=== PATIENT | male | born 1975 | race Caucasian/White ===

== ENCOUNTER 2021-04-22 12:27 | Outpatient (CLI) | payer BC, SELFPAY ==
--- NOTE | 2021-04-22 16:58 | WPDPFTINT ---
PFT Procedure Performed PFT Procedure Performed Spirometry with Pre/Post Bronchodilator Plethysmography (Lung Vol) Diffusing Cap (DLCO) Flow Vol Loop PFT Interpretation This is a pulmonary function test with pre and post-bronchodilator spirometry, plethysmography and diffusing capacity. The test was performed and results interpreted in accordance with the 2019 and 2005 ATS/ERS Task Force guidelines respectively using the Global Lung Function Initiative-2012 reference equations. Patient demonstrated good effort and cooperation. Reproducibility criteria were met. The quality of the pre bronchodilator spirometry maneuver was Grade A and post bronchodilator spirometry maneuver was Grade A. Findings: Spirometry: There is decreased maximal expiratory airflow at all lung volumes with concave expiratory flow tracing. The pre bronchodilator FVC is 4.01 L, 78% predicted. The pre bronchodilator FEV1 is 2.69 L, 66% predicted. The FEV1: FVC ratio is 67%. The post bronchodilator FVC is 4.26 L, representing a 6% increase. The post bronchodilator FEV1 is 2.92 L, representing an 8% increase. Plethysmography: The total lung capacity is 5.97 L, 86% predicted. Functional residual capacity is 2.92 L, 83% predicted. The residual volume is 1.95 L, 100% predicted. Diffusion capacity: The absolute diffusion capacity is 22.6, 71% predicted. The diffusing capacity corrected for alveolar volume is 4.14, 89% predicted. Impression: There is a moderate obstructive abnormality without significant improvement after inhaling a single dose of albuterol. The lung volumes are normal. The absolute diffusing capacity is mildly decreased and normalizes when corrected for alveolar volume. There are no prior studies for comparison
== END 2021-04-22 12:28 | disposition home or self-care (01) ==
PROVIDERS: PCP Emergency Medicine; Visit Provider Nurse Practitioner
DX: J45.909 Unspecified asthma, uncomplicated (principal)
CPT/HCPCS: 94060; 94726; 94729

== ENCOUNTER 2021-05-18 15:14 | Outpatient (CLI) | payer BC, SELFPAY ==
--- NOTE | ~2021-05-18 | XR_ITS ---
XR chest 2V DATE: 05/18/2021 15:27 INDICATION: Dyspnea, cough TECHNIQUE: PA and lateral views COMPARISON: 10/26/2014 PA and lateral chest FINDINGS: Normal heart size. No hilar or mediastinal enlargement. No pulmonary infiltrate or consolid ation, pleural effusion or pulmonary vascular congestion or pneumothorax. IMPRESSION: No active cardiopulmonary disease Reviewed, dictated and finalized at location B.
== END 2021-05-18 15:15 | disposition home or self-care (01) ==
LOC: ANHIMG 15:16
PROVIDERS: PCP Emergency Medicine; Visit Provider Nurse Practitioner
DX: R06.00 Dyspnea, unspecified (principal)
CPT/HCPCS: 71046

== ENCOUNTER 2021-11-05 03:39 | Emergency (ER) | payer BC, SELFPAY ==
--- NOTE | ~2021-11-05 | XR_ITS ---
EXAMINATION: XR abdomen/kub 1V DATE: 11/05/2021 06:49 INDICATION: Right flank pain TECHNIQUE: A supine view of the abdomen on 2 radiographs was obtained. COMPARISON: CT dated 11/05/2021 FINDINGS: The previous noted 7-8 mm stones at the right renal pelvis and ureteropelvic junction are clearly vis ible on the plain radiographs near the tip of the right transverse process of L1. No other urolithias is. A few phleboliths in the pelvis. Moderate amount of gas and stool scattered throughout the colon. No dilated gas-filled bowel to suggest obstruction. Mild lumbar dextrocurvature. Mild bilateral hip osteoarthritis.. IMPRESSION: 1. Pair of 7-8 mm stones at the right renal pelvis and ureteropelvic junction. Reviewed, dictated and finalized at location A.
--- NOTE | ~2021-11-05 | CT_ITS ---
EXAMINATION: CT abdomen pelvis wo con DATE: 11/05/2021 04:00 INDICATION: Right flank pain TECHNIQUE: Computed tomography (CT) of the abdomen and pelvis was performed without intravenous contr ast. Automated exposure control and iterative reconstruction technique were employed. The dose-length product was 479.43 mGy-cm. COMPARISON: 03/14/2016 FINDINGS: Lung bases are clear. Heart size is normal. No pericardial or pleural effusion. Liver, gallbladder, s pleen, pancreas, bilateral adrenal glands and left kidney are normal. 8 x 6 mm stone in the right lyndsey al pelvis and 7 x 6 mm stone at the right ureteropelvic junction. There is mild right hydronephrosis and mild stranding about the proximal right ureter and right renal pelvis. No stones seen along the m ore distal ureters. Several phleboliths in the pelvis. Bladder is normal. Small fat-containing direct right inguinal hernia. Bowels including the appendix are normal. No free intraperitoneal gas or flui d. No pathologically enlarged abdominal or pelvic lymphadenopathy. Mild lumbar dextrocurvature. IMPRESSION: 1. Right nephrolithiasis including likely partially obstructing stone at the ureteropelvic junction w ith mild right hydronephrosis. There is also some adjacent inflammation presenting and would correlat e with urinalysis to exclude associated urinary tract infection. Reviewed, dictated and finalized at location A. IMPRESSION: 1. Right nephrolithiasis including likely partially obstructing stone at the ur eteropelvic junction with mild right hydronephrosis. There is also some adjacen t inflammation presenting and would correlate with urinalysis to exclude associ ated urinary tract infection.
[2021-11-05] MEDS: SODIUM CHLORIDE 0.9% IV 1,000 ML 999 ML IV CONT ×2 (03:45→04:56)
[2021-11-05] MEDS: MORPHINE SULFATE (*CRX) 4 MG/ML INJ IV PUSH (03:45)
[2021-11-05 03:47] VITALS: BP 136/99; PULSE 61; RESP 28; TEMP 36.3; O2SAT 100
[2021-11-05] MEDS: HYDROmorphone HCL INJ (*CRX) 1 MG/ML SYR IV PUSH (04:11)
[2021-11-05 04:41] LABS: Basophils Absolute Auto 0.1 K/mm3 (0.0-0.1); Basophils Percent Auto 0.4 % (0.2-1.2); Eosinophils Absolute Auto 0.3 K/mm3 (0-0.3); Eosinophils Percent Auto 2.2 % (0-4.4); Hematocrit 39.4 % (42.0-52.0); Hemoglobin 12.9 g/dL (14.0-18.0); Immature Granulocyte Absolute 0.02 K/mm3 (0.00-0.031); Immature Granulocyte Percent A 0.2 % (0-0.5); Lymphocytes Percent Auto 19.9 % (18.3-44.2); Mean Corpuscular HGB Conc 32.7 g/dl (32-36); Mean Corpuscular Hemoglobin 26.4 pg (26-34); Mean Corpuscular Volume 80.7 fl (80-100); Mean Platelet Volume 10.1 fl (7.4-10.4); Monocytes Percent Auto 7.5 % (2.6-8.5); Neutrophils Absolute Auto 9.1 K/mm3 (1.3-6.7); Neutrophils Percent Auto 69.8 % (45.5-73.1); Platelet Count Result 297 k/mm3 (150-375); Red Blood Count 4.88 M/mm3 (4.6-6.20); Red Cell Distribution Width 15.4 % (11.5-14.5)
--- NOTE | 2021-11-05 04:44 | ED.MALEGU ---
HPI - Male Genitourinary General Chief complaint: Urogenital-Male Stated complaint: right flank pain Time Seen by Provider: 11/05/21 03:42 Source: patient History of Present Illness HPI Narrative: Patient presents with right-sided flank pain reports his symptoms started suddenly started in his right back and radiates down to his groin. Pain is achy, constant, no clear aggravating or alleviating factors. Thinks it is a kidney stone as he reports a history of the same and thinks maybe required lithotripsy in the past. Related Data Allergies Allergy/AdvReac Type Severity Reaction Status Date / Time diphenhydramine Allergy Unknown Verified 11/05/21 03:50 [From Benadryl] Review of Systems Review of Systems: CONSTITUTIONAL: Denies fever, chills, or sweats. EYES: Denies visual changes, redness, or discharge. ENT: Denies rhinorrhea, congestion, sore throat, or otalgia. CARDIOVASCULAR: Denies chest pain, palpitations, or edema. RESPIRATORY: Denies cough or dyspnea. GASTROINTESTINAL: Denies nausea, vomiting, or diarrhea. GENITOURINARY: Denies dysuria or hematuria. SKIN: Denies rash or itching. MUSCULOSKELETAL: Denies back pain, joint pain, or myalgia. NEUROLOGIC: Denies headache, numbness, dizziness, or weakness. PSYCHIATRIC: Denies anxiety or depression. All systems reviewed & are unremarkable except as noted in HPI and below PMFSH Past Medical History Medical History Asthma Exam Narrative: GENERAL: Well-appearing, well-nourished, and in moderate distress due to pain HEAD: Normocephalic, atraumatic. EYES: PERRLA and EOMI. ENT: Nares clear, no rhinorrhea or epistaxis. Mucous membranes moist. NECK: Supple. No masses. No JVD ABDOMEN: Soft, nontender, nondistended EXTREMITIES: Normal range of motion. No edema. SKIN: Warm, dry, no rash. NEURO: No focal deficits. Alert and oriented x3. PSYCH: Normal mood and affect. Course Reevaluation(s) Reevaluation #1: Patient is more comfortable patient updated on results are pending CMP and UA Date: 11/05/21 Time: 05:01 Reevaluation #2: Patient is evaluated by urology in the ER patient will be scheduled for lithotripsy tomorrow patient is comfortable with discharge plan today urology requested a dose of antibiotics prior to discharge. Date: 11/05/21 Time: 07:08 Consultations Consultation #1: Case discussed with Dr. Baker who will evaluate in the ER. Date: 11/05/21 Time: 06:41 Vital Signs Vital signs: Vital Signs Temperature 36.3 C L 11/05/21 03:47 Pulse Rate 61 11/05/21 03:47 Respiratory Rate 28 H 11/05/21 03:47 Blood Pressure 136/99 H 11/05/21 03:47 Pulse Oximetry 100 11/05/21 03:47 Temperature 36.3 C L 11/05/21 03:47 Pulse Rate 61 11/05/21 03:47 Respiratory Rate 28 H 11/05/21 03:47 Blood Pressure 136/99 H 11/05/21 03:47 Pulse Oximetry 100 11/05/21 03:47 MDM - Male Genitourinary MDM Narrative Medical decision making narrative: H&P as above, vss, patient presented mild distress due to pain, labs reassuring, img with large right proximal stone, additional labs/img considered, symptomatic relief available as needed, on reevaluation pt continues to looks clinically well. Suspect proximal stone causing pain, dns infected stone, acute kidney injury, sepsis. Plan is for lithotripsy tomorrow. Urology evaluated the patient in the ER and will contact the patient later today. Lab Data Result diagrams: 11/05/21 04:17 11/05/21 04:17 Labs: Lab Results 11/05/21 11/05/21 11/05/21 Range/Units 04:17 04:17 05:43 WBC 13.0 H (4.5-10.0) K/mm3 RBC 4.88 (4.6-6.20) M/mm3 Hgb 12.9 L (14.0-18.0) g/dL Hct 39.4 L (42.0-52.0) % MCV 80.7 (80-100) fl MCH 26.4 (26-34) pg MCHC 32.7 (32-36) g/dl RDW 15.4 H (11.5-14.5) % Plt Count 297 (150-375) k/mm3 MPV 10.1 (7.4-10.4) fl Immature Gran % (Auto) 0.2 (0-0.5) % Neut % (Auto) 69.8
[2021-11-05 05:00] LABS: Alanine Aminotransferase 18 U/L (4-50); Albumin Level 4.5 g/dL (3.5-5.1); Alkaline Phosphatase 67 U/L (38-126); Anion Gap 11 mmol/L (8-16); Aspartate Amino Transferase 28 U/L (17-59); Bilirubin,Total 0.6 mg/dL (0.2-1.3); Blood Urea Nitrogen 13 mg/dL (9-20); Calcium 9.2 mg/dL (8.4-10.2); Carbon Dioxide 19 mmol/L (22-30); Chloride 105 mmol/L (98-107); Estimated CRCL calculation 98 ml/min; Estimated Glomerular Filt Rate > 60; Glucose 109 mg/dL (65-110); Potassium 3.9 mmol/L (3.4-5.0); Sodium 135 mmol/L (137-145)
[2021-11-05 05:54] LABS: Add Urine Microscopic? YES; Appearance Urine Cloudy (Clear); Bacteria Urine Trace /hpf; Bilirubin Urine Negative (Negative); Blood Urine 3+ (Negative); Calcium Oxalate Crystals Urine Present /hpf; Color Urine Yellow (Yellow); Glucose Urine UA Negative (Negative); Ketones Urine Negative (Negative); Leukocyte Esterase Ur Trace LEU/UL (Negative); Mucus Urine Heavy /lpf; Nitrate Urine Negative (Negative); Protein Urine 2+ mg/dL (Negative); RBC Urine >75 /hpf (0-2); Specific Grav Ur 1.023 (1.001-1.035); Urobilinogen Urine Negative mg/dL (<2.0)
--- NOTE | 2021-11-05 07:12 | WPDURCON ---
Assessment and Plan Assessment and plan (1) Right renal stone: Code(s): N20.0 - Calculus of kidney Status: Acute Assessment and Plan: Right ESWL Urology Consult Note HPI Date Seen: 11/05/21 Primary Care Provider: Chidi Lopes MD Consult Narrative Narrative: Stephen Plaza is a 45 year old male who has spontaneously passed 1 ureteral calculus in the remote past. He presents to the ER with acute right flank pain, nausea and vomiting. He denies fevers chills irritable voiding or gross hematuria. Imaging demonstrates 2 5-6 mm calculi in his right renal pelvis, 1 of which appears to be obstructing the right ureteropelvic junction. His pain is well controlled with analgesics. After discussion of options he has elected to be discharged with arrangements for outpatient ESWL. He is aware the risk of that procedure including, but not limited to, persistent stone fragments which could obstructing cause pain, need for 2nd procedure, injury to the kidney with perinephric hematoma. Review of Systems Cardiovascular: Cardiovascular: Denies chest pain, Denies lightheadedness, Denies palpitations and Denies dyspnea Respiratory: Respiratory: Denies dyspnea Gastrointestinal: Gastrointestinal: Denies diarrhea, Denies nausea and Denies vomiting Genitourinary: Genitourinary: Denies hematuria and Denies dysuria Endocrine: Endocrine: Denies palpitations [facility] Past Medical History Medical History Asthma Meds Home Medications and Allergies Allergies Allergy/AdvReac Type Severity Reaction Status Date / Time diphenhydramine Allergy Unknown Verified 11/05/21 03:50 [From Benadryl] Vital Signs Vital Signs - 24 hr 11/05/21 03:47 Temperature 97.3 F L Pulse Rate 61 Respiratory Rate 28 H Blood Pressure 136/99 H Pulse Oximetry 100 Exam Const: General: no acute distress Resp: Effort & Inspection: normal respiratory effort GI: Inspection: non-distended GI Palp: No abdominal tenderness and No Guarding due to palpation present (GI) Auscultation: normal bowel sounds Results Labs CBC & Chem 7: 11/05/21 04:17 11/05/21 04:17 Labs: Short CBC 11/05/21 Range/Units 04:17 WBC 13.0 H (4.5-10.0) K/mm3 Hgb 12.9 L (14.0-18.0) g/dL Hct 39.4 L (42.0-52.0) % Plt Count 297 (150-375) k/mm3 BMP 11/05/21 04:17 Sodium 135 L Potassium 3.9 Chloride 105 Carbon Dioxide 19 L BUN 13 Creatinine 0.90 Glucose 109 Calcium 9.2 Liver Function 11/05/21 Range/Units 04:17 Total Bilirubin 0.6 (0.2-1.3) mg/dL AST 28 (17-59) U/L ALT 18 (4-50) U/L Alkaline Phosphatase 67 (38-126) U/L Albumin 4.5 (3.5-5.1) g/dL Urine 11/05/21 Range/Units 05:43 Urine Color Yellow (Yellow) Urine Appearance Cloudy H (Clear) Urine pH 5.0 (5.0-9.0) Ur Specific [place] 1.023 (1.001-1.035) Urine Protein 2+ H (Negative) mg/dL Urine Glucose (UA) Negative (Negative) mg/dL
[2021-11-05 07:47] VITALS: BP 124/72; PULSE 75; RESP 20; O2SAT 98
== END 2021-11-05 07:49 | disposition home or self-care (01) ==
PROVIDERS: Emergency Provider Emergency Medicine; PCP Emergency Medicine
DX: N13.2 Hydronephrosis with renal and ureteral calculous obstruction (principal); J45.909 Unspecified asthma, uncomplicated
CPT/HCPCS: 36415; 74018; 74176; 80053; 81001; 85025; 87086; 87088; 96361; 96365; 96375; 99284; J0696; J1170; J2270; J7030

== ENCOUNTER 2021-11-06 00:34 | Day surgery (SDC) | payer BC, SELFPAY ==
[2021-11-05 08:48] VITALS: BMI 23.7
--- NOTE | 2021-11-05 08:53 | PC.NURSE ---
Report to the Outpatient Waiting Room, entrance under the green pavilion located off [facility], at time 1130 on date 11/06/21. OR Time: 1330. - You and your visitor will be asked a series of questions to screen for COVID 19 for your protection. - A mask is required within the hospital. One visitor will be allowed to accompany the patient into the hospital. Patients visitor will be instructed to remain with patient at all times or leave the building. We will allow the visitor to come back to the postoperative area when patient is ready. Preoperative COVID Testing Requirements: No COVID Test needed if: (proof is required; if not received patient will have Rapid Test prior to entry) - Patient has received COVID Vaccine at least 14 days prior to procedure date or - Patient has positive COVID test result within last 90 days of surgery date. COVID Test needed if above criteria is not met Patients may have clear liquids (water, carbonated beverages, clear teas, apple juice) until 3 hours prior to surgery with a maximum of 20 ounces. - No food from midnight until time of surgery Take the following medications with a SIP of water the morning of surgery: INHALER, PAIN PILL (IF NEEDED) Medications to discontinue per physician: N/A Date to take last dose: N/A Please no make-up, nail faroese, hairspray, perfume, deodorant, or body powder the day of surgery. No jewelry (including any body piercings) or valuables the day of surgery, leave them at home. Please take a shower or bath the night before, or the morning of, surgery with an antibacterial soap. Wear comfortable, loose fitting clothing. - Jewelry must be removed prior to entering the operating room. Rings and piercings that are not removed may be cut off. - The hospital will not accept responsibility for valuables. - Please leave all valuables, including medications, at home the day of surgery. If you are going home after surgery, a licensed dray driver must drive you home. - NO public transportation without another adult. - We recommend that an adult stay with you for 24 hours following discharge. - We also recommend that you do not drive, make important decision, drink alcoholic beverages, or take any drugs that were not prescribed by your health care provider for at least 24 hours after your discharge time. Follow any additional instructions given to you from your surgeon. Telephone instructions given to LORENE HADDAD and asked if any additional questions and then verbalized understanding. Patient advised to call surgeon office or pre surgery nurse liaison [phone] if any additional questions.
[2021-11-06] VITALS (9 sets, daily range): BP systolic 120–145; BP diastolic 74–99; PULSE 57–75; RESP 12–20; TEMP 36.2–36.9; O2SAT 94–99
--- NOTE | ~2021-11-06 | XR_ITS ---
EXAMINATION: XR abdomen/kub 1V DATE: 11/06/2021 11:36 INDICATION: Kidney stone. TECHNIQUE: A supine view of the abdomen was obtained. COMPARISON: CT abdomen and pelvis 11/05/2021 radiographs 11/05/2021 FINDINGS: There are phleboliths in the pelvis. There are no dilated loops of bowel. There are 2 stone s at right ureteropelvic junction measuring up to 6 mm. IMPRESSION: 1. 2 stones at right ureteropelvic junction measuring up to 6 mm. Reviewed, dictated and finalized at location A.
--- NOTE | 2021-11-06 06:50 | WPDHPUPDATE1 ---
History and Physical Update Update Date/Time: 11/06/21 06:50 History and Physical has been reviewed, including an updated exam of the patient. There are NO changes in the patient's condition. Risks, benefits, and alternatives have been discussed and questions answered. Patient agrees to proceed with procedure.
[2021-11-06] MEDS: LACTATED RINGERS 1,000 ML 30 ML IV CONT ×2 (11:50→14:15)
[2021-11-06 12:12] LABS: Partial Thromboplastin Time 26.6 SECONDS (22.3-36.8); Prothrombin Time 12.7 Seconds (11.1-14.7)
--- NOTE | 2021-11-06 12:38 | WPDANESEPPF ---
Anes - Initial Pre Proc Eval Procedure: Operation Date: 11/06/21 13:30 Proposed Procedures p Right Extracorporeal Shock Wave Lithotripsy - Saad Baker MD Date/Time: 11/06/21 12:38 Surgeon: Saad Baker MD Pre Op Diagnosis: right kidney stone Patient Data Age: 45 Gender: M Height: 1.83 m Weight: 85.6 kg Last Vital Signs Temp 36.9 C 11/06/21 12:08 Pulse 57 L 11/06/21 12:08 Resp 20 11/06/21 12:08 BP 120/74 11/06/21 12:08 Pulse Ox 99 11/06/21 12:08 Allergies Allergy/AdvReac Type Severity Reaction Status Date / Time No Known Allergies Allergy Verified 11/06/21 11:54 Home Medications Medication Instructions Recorded Confirmed Type fluticasone propion-salmeterol 2 inh INHALATION BID 11/05/21 11/06/21 History [Wixela Inhub] oxycodone-acetaminophen 1 tablet PO Q4H PRN #10 tablet 11/05/21 11/06/21 Rx Laboratory Tests 11/06/21 11:52 PT 12.7 Seconds Seconds (11.1-14.7) INR 1.0 APTT 26.6 SECONDS SECONDS (22.3-36.8) Patient hx anesthesia problems: none Family hx anesthesia problems: none Results Review: All pre-operative results and documents have been reviewed as part of the pre-operative evaluation. [facility] Past Medical History Medical History Asthma Social History Social History Smoking status: Never smoker Alcohol intake: never Substance use: current Substance use type: marijuana Living arrangements: alone Spiritual care concerns: No Anes - Eval Final PreProcedure Day of Procedure 11/06/21 12:38 Patient weight: overweight Heart: regular rate and rhythm Lungs: clear to auscultation Airway: Mallampati scale class II Neurological: alert and oriented Last oral intake: >/= 8 hours ASA classification: II Emergent: no Anesthetic plan: proceed Anesthesia type and monitoring: general LMA and standard monitoring Results Review: All pre-operative results and documents have been reviewed as part of the pre-operative evaluation. Informed Consent: The patient's anesthetic plan and its attendant risks and benefits were discussed with the patient/family/POA. Questions were solicited and answers provided to the satisfaction of the patient/family/POA.
[2021-11-06] MEDS: ceFAZolin 2 GM/D5W 50 ML 2 GM/50 ML BAG IVPB (12:46)
--- NOTE | 2021-11-06 12:58 | W.PM.PROC2 ---
Procedure Note - Detailed Date of Procedure 11/06/21 Pre-op Diagnosis Right kidney stones Post-op Diagnosis Same Procedure Performed Right ESWL Surgeon Saad Baker MD Anesthesia General Description of Procedure The patient was brought to the operative suite where he was placed in the supine position on the Dornier lithotripsy table. The focal point of the lithotripter was placed at a []2 continguoius calculi in right renal pelvis - each 4-5mm. A total of 2500 shocks were delivered at a power setting of 4. There appeared to be good fragmentation of the stone. The patient tolerated the procedure well and was taken to the recovery room in good condition. Estimated Blood Loss 0 Drains No Packing No Pathology None sent Complications No immediate complications Condition Stable Disposition PACU
[2021-11-06] MEDS: fentaNYL CITRATE INJ (*CRX) 100 MCG/2 ML VIAL 25 MCG IV PUSH ×5 (13:55→15:03)
[2021-11-06] MEDS: oxyCODONE HCL (*CRX) 5 MG TAB IR PO (14:52)
== END 2021-11-06 15:36 | disposition home or self-care (01) ==
PROVIDERS: PCP Emergency Medicine; Visit Provider Urology
PROC: (CPT 50590; principal; 2021-11-06 13:30)
DX: N20.0 Calculus of kidney (principal); J45.909 Unspecified asthma, uncomplicated; Z79.51 Long term (current) use of inhaled steroids; F12.90 Cannabis use, unspecified, uncomplicated
CPT/HCPCS: 50590; 36415; 74018; 85610; 85730; A9270; J0690; J2250; J2405; J2704; J3010; J7120

== ENCOUNTER 2021-11-08 04:42 | Observation (INO) | payer BC, SELFPAY ==
--- NOTE | ~2021-11-08 | CT_ITS ---
EXAMINATION: CT abdomen pelvis w con DATE: 11/08/2021 06:07 INDICATION: Worsening right flank pain TECHNIQUE: Computed tomography (CT) of the abdomen and pelvis was performed without intravenous contr ast. The dose-length product was 578.96 mGy-cm. Automated exposure control and iterative reconstructi on technique were employed. COMPARISON: CT dated 11/05/2021. FINDINGS: There is dependent atelectasis. Heart size normal. No significant pleural or pericardial ef fusion. There are small subcentimeter hypodensities of the left kidney, most likely benign cysts. Fat ty infiltration of the liver. There is moderate right perinephric edema. Multiple right calyceal ston es. There is moderate right hydroureteronephrosis secondary to a column of stones in the right mid ur eter at the level of L3 inferiorly. There is periureteral edema with mild urothelial enhancement. Can not exclude ascending urinary tract infection. There are layering stones in the bladder. Bladder is d ecompressed. No left hydronephrosis. The spleen, pancreas, adrenal glands are unremarkable. Gallbladd er is present. Small fat-containing umbilical hernia. Nonobstructive bowel gas pattern. IMPRESSION: 1. There is a column of small stones in the right mid ureter at the L3 level with moderate right hydr oureteronephrosis as well as periureteral/perinephric edema and urothelial enhancement. Cannot exclud e ascending urinary tract infection. 2: Nonobstructing right nephrolithiasis. Bladder stones. Reviewed, dictated and finalized at location A. IMPRESSION: 1. There is a column of small stones in the right mid ureter at the L3 level wi th moderate right hydroureteronephrosis as well as periureteral/perinephric sarthak ma and urothelial enhancement. Cannot exclude ascending urinary tract infection . 2: Nonobstructing right nephrolithiasis. Bladder stones.
[2021-11-08 04:47] VITALS: BP 141/81; PULSE 62; RESP 24; TEMP 36.7; O2SAT 97
--- NOTE | 2021-11-08 05:13 | ED.BACK ---
HPI - Back Pain/Injury General Chief Complaint: Back Pain/Injury Stated Complaint: kidney stone? Time Seen by Provider: 11/08/21 04:59 Source: patient, RN notes reviewed and old records reviewed History of Present Illness HPI Narrative: 45-year-old male with history of recent lithotripsy on 11/06 presents to the emergency department for evaluation of worsening right flank pain. Patient states the procedure was done on Tuesday. Patient states he was still having some pain through Tuesday. Patient states that he did take some of his [place] pain medication on Tuesday night and woke up with some gastric reflux and was still having some right flank pain. Patient took some additional [place] and woke up later with additional acid reflux and was still having right flank pain. Patient's primary complaint at this time is a burning right flank pain. Patient denies any other abdominal pain. Patient does have associated nausea. Related Data Home Medications Medication Instructions Recorded Confirmed fluticasone propion-salmeterol 2 inh INHALATION BID 11/05/21 11/06/21 [Wixela Inhub] albuterol sulfate INHALATION 11/08/21 Allergies Allergy/AdvReac Type Severity Reaction Status Date / Time No Known Allergies Allergy Verified 11/06/21 11:54 Review of Systems Review of Systems: CONSTITUTIONAL: Denies fever, chills, or sweats. EYES: Denies visual changes, redness, or discharge. ENT: Denies rhinorrhea, congestion, sore throat, or otalgia. CARDIOVASCULAR: Denies chest pain, palpitations, or edema. RESPIRATORY: Denies cough or dyspnea. GASTROINTESTINAL: Right flank pain with associated nausea and vomiting GENITOURINARY: Denies dysuria or hematuria. SKIN: Denies rash or itching. MUSCULOSKELETAL: Denies back pain, joint pain, or myalgia. NEUROLOGIC: Denies headache, numbness, or weakness. [facility] Past Medical History Medical History Asthma Social History Social History Smoking status: Never smoker Alcohol intake: never Substance use: current Substance use type: marijuana Spiritual care concerns: No Exam Narrative: APPEARANCE: Well appearing, no pain, no distress, well-nourished. HEAD: normocephalic, atraumatic. EYES: PERRLA/EOMI, conjunctivae clear. NOSE: Normal no drainage NECK: Supple. No adenopathy, no masses. RESPIRATORY: Airway patent, respirations nonlabored. Clear to auscultation bilaterally, no rales, rhonchi, wheezing. CARDIOVASCULAR: Regular rate and rhythm without murmurs rubs or gallops. ABDOMINAL: Right flank tenderness to palpation. Some midepigastric tenderness to palpation as well. soft with no rebound no guarding. NBS MUSCULOSKELETAL: Moves all extremities. Strength/ROM intact, No edema, No calf tenderness. NEURO: Alert. Cranial nerves II through XII intact. Good gait. Good coordination SKIN: Warm, dry. Normal Color Course Course Emergency Course: Patient does have an elevated lipase. Patient denies any prior history of pancreatitis. Patient denies any alcohol consumption. Patient does admit to smoking marijuana. Urology was consulted. Case was discussed with the hospitalist and patient will be admitted to [facility] without telemetry. Patient was stable at time of admission. Consultations Consultation #1: Case was discussed with Dr Ribeiro on-call for urology. Patient will be admitted to the hospital service and urology will see the patient as consult. Patient was made n.p.o. Vital Signs Vital signs: Vital Signs Temperature 98.0 F 11/08/21 04:47 Pulse Rate 62 11/08/21 04:47 Respiratory Rate 24 H 11/08/21 04:47 Blood Pressure 141/81 H 11/08/21 04:47 Pulse Oximetry 97 11/08/21 04:47 Temperature 98.0 F 11/08/21 04:47 Pulse Rate 63 11/08/21 06:19 Respiratory Rate 19 11/08/21 06:19 Blood Pressure 143/85 H 11/08/21 06:19 Pulse Oximetry 96 11/08/21 0
[2021-11-08 05:16] LABS: Basophils Percent Auto 0.3 % (0.2-1.2); Eosinophils Absolute Auto 0.2 K/mm3 (0-0.3); Hematocrit 37.8 % (42.0-52.0); Hemoglobin 11.8 g/dL (14.0-18.0); Immature Granulocyte Absolute 0.01 K/mm3 (0.00-0.031); Immature Granulocyte Percent A 0.1 % (0-0.5); Lymphocytes Absolute Auto 1.52 K/mm3 (0.9-3.2); Lymphocytes Percent Auto 16.1 % (18.3-44.2); Mean Corpuscular HGB Conc 31.2 g/dl (32-36); Mean Corpuscular Hemoglobin 26.2 pg (26-34); Mean Corpuscular Volume 83.8 fl (80-100); Mean Platelet Volume 9.7 fl (7.4-10.4); Monocytes Percent Auto 10.6 % (2.6-8.5); Neutrophils Absolute Auto 6.7 K/mm3 (1.3-6.7); Neutrophils Percent Auto 70.9 % (45.5-73.1); Platelet Count Result 227 k/mm3 (150-375); Red Blood Count 4.51 M/mm3 (4.6-6.20); Red Cell Distribution Width 15.7 % (11.5-14.5); White Blood Count 9.5 K/mm3 (4.5-10.0)
[2021-11-08] MEDS: ONDANSETRON INJ 4 MG/2 ML VIAL IV PUSH (05:17)
[2021-11-08] MEDS: HYDROmorphone HCL INJ (*CRX) 1 MG/ML SYR IV PUSH ×2 (05:18→06:17)
[2021-11-08 05:23] LABS: Add Urine Microscopic? YES; Appearance Urine Clear (Clear); Bacteria Urine Trace /hpf; Bilirubin Urine Negative (Negative); Blood Urine 3+ (Negative); Color Urine Straw (Yellow); Glucose Urine UA Negative (Negative); Ketones Urine Negative (Negative); Leukocyte Esterase Ur Negative LEU/UL (Negative); Mucus Urine Rare /lpf; Nitrate Urine Negative (Negative); Protein Urine Negative (Negative); RBC Urine 0-2 /hpf (0-2); Specific Grav Ur 1.005 (1.001-1.035); Urobilinogen Urine Negative mg/dL (<2.0); WBC Urine 0-3 /hpf
[2021-11-08 05:28] LABS: Alanine Aminotransferase 18 U/L (4-50); Albumin Level 4.2 g/dL (3.5-5.1); Alkaline Phosphatase 59 U/L (38-126); Anion Gap 7 mmol/L (8-16); Aspartate Amino Transferase 28 U/L (17-59); Bilirubin,Total 0.8 mg/dL (0.2-1.3); Blood Urea Nitrogen 8 mg/dL (9-20); Calcium 8.9 mg/dL (8.4-10.2); Carbon Dioxide 25 mmol/L (22-30); Chloride 104 mmol/L (98-107); Estimated CRCL calculation 75 ml/min; Estimated Glomerular Filt Rate > 60; Glucose 143 mg/dL (65-110); Lipase 870 U/L (23-300); Potassium 3.8 mmol/L (3.4-5.0); Sodium 136 mmol/L (137-145)
--- NOTE | 2021-11-08 05:55 | PC.NURSE ---
Pt to CT scan via stretcher at this time.
[2021-11-08 06:19] VITALS: BP 143/85; PULSE 63; RESP 19; O2SAT 96
[2021-11-08 06:39] LABS: Ethanol < 10 mg/dL (<10)
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
[2021-11-08 08:39] VITALS: BP 124/78; PULSE 69; RESP 16; TEMP 36.6; O2SAT 98
[2021-11-08 08:50] VITALS: BMI 25.8
[2021-11-08 08:57] VITALS: O2SAT 98
--- NOTE | 2021-11-08 09:11 | ADMGEN ---
This patient, Stephen Plaza, was admitted to 3 Med Surg Room 302-01 at 0845. Patient/family oriented to hospital policies and general routines including ID bracelet, bed and alarms, visiting hours, pain management, procedures, bathroom and other care routines, personal items, smoking policy, room service/diet, and visiting hours. Information on how to activate the Rapid Response Team has been discussed. Patient/Family are encouraged to report perceived risks to care and to ask questions if they do not understand what they are told or what they should do.
[2021-11-08 09:15] VITALS: BP 128/71; PULSE 54; RESP 16; TEMP 36.8; O2SAT 96
[2021-11-08] MEDS: SODIUM CHLORIDE 0.9% IV 1,000 ML 150 ML IV CONT (09:27)
[2021-11-08] MEDS: HYDROmorphone HCL INJ (*CRX) 1 MG/ML SYR 0.5 MG IV PUSH (09:33)
--- NOTE | 2021-11-08 10:31 | WPDURCON ---
Assessment and Plan Assessment and plan (1) Right renal stone: Code(s): N20.0 - Calculus of kidney Status: Acute Additional Plan 45M with ureteral fragments after ESWL two days ago. - We had a long discussion about his options which are continued MET or URS +/- LL with stent. I alee pictures on his white board to illustrate. Describe URS in detail. Discussed stents which can be quite irritating to some people. He wants to continue to try and pass the fragments which is not unreasonable. - He should be on tamsulosin 0.4 mg daily for about 14 days. Ibuprofen for pain control, narcotics as necessary. - Will call the office early this week if he is still struggling and we can probably arrange an outpatient URS if necessary. - Mother agrees with plan. Urology Consult Note HPI Date Seen: 11/08/21 Requesting Physician: Ned Estevez DO Primary Care Provider: Chidi Lopes MD Consult Narrative Narrative: Stephen Plaza is a 45 year old male s/p ESWL two days ago with Dr Baker for two large right renal pelvis stones. He has passed fragments. He came to ED this morning due to right flank pain. Labs fine, UA not infected, vitals fine. CT shows a colum in the mid right ureter of about 1.5 cm worth of 2 mm fragments with mild to moderate hydro. Pain currently well controlled. He was not on tamsulosin as far as he is aware, though has had it in the past. Review of Systems Review of Systems: All systems reviewed & are unremarkable except as noted in HPI and below PMFSH Past Medical History Medical History Asthma Family History Family History Mother Hyperlipidemia Grandparent Hyperlipidemia Social History Social History Smoking status: Never smoker Alcohol intake: never Substance use: current Substance use type: marijuana Last use: 11/07/2021 Spiritual care concerns: No Meds Home Medications and Allergies Home Medications Medication Instructions Recorded Confirmed Type fluticasone propion-salmeterol 2 inh INHALATION BID 11/05/21 11/06/21 History [Wixela Inhub] oxycodone-acetaminophen 1 tablet PO Q4H PRN #10 tablet 11/05/21 11/06/21 Rx cephalexin 500 mg PO Q8H #9 cap 11/06/21 Rx hydrocodone-acetaminophen 1 - 2 tablet PO Q6H PRN #20 tablet 11/06/21 Rx albuterol sulfate INHALATION 11/08/21 History Allergies Allergy/AdvReac Type Severity Reaction Status Date / Time No Known Allergies Allergy Verified 11/06/21 11:54 Vital Signs Vital Signs - 24 hr 11/08/21 04:47 11/08/21 06:19 11/08/21 08:39 Temperature 36.7 C 36.6 C Pulse Rate 62 63 69 Respiratory Rate 24 H 19 16 Blood Pressure 141/81 H 143/85 H 124/78 Pulse Oximetry 97 96 98 11/08/21 08:57 Temperature Pulse Rate Respiratory Rate Blood Pressure Pulse Oximetry 98 Exam Const: General: cooperative, comfortable and no acute distress Eyes: General: appearance normal, both eyes and all related structures Resp: Effort & Inspection: normal respiratory effort Neuro: General: patient oriented x3 Results Labs CBC & Chem 7: 11/08/21 05:08 11/08/21 05:08 Labs: Short CBC 11/08/21 Range/Units 05:08 WBC 9.5 (4.5-10.0) K/mm3 Hgb 11.8 L (14.0-18.0) g/dL Hct 37.8 L (42.0-52.0) % Plt Count 227 (150-375) k/mm3 BMP 11/08/21 05:08 Sodium 136 L Potassium 3.8 Chloride 104 Carbon Dioxide 25 BUN 8 L D Creatinine 1.20 Glucose 143 H Calcium 8.9 Liver Function 11/08/21 Range/Units 05:08 Total Bilirubin 0.8 (0.2-1.3) mg/dL AST 28 (17-59) U/L ALT 18 (4-50) U/L Alkaline Phosphatase 59 (38-126) U/L Albumin 4.2 (3.5-5.1) g/dL Urine 11/08/21 Range/Units 05:08 Urine Color Straw (Yellow) Urine Appearance Clear (Clear) Urine pH 6.0 (
[2021-11-08] MEDS: TAMSULOSIN HCL 0.4 MG CAPSULE PO (11:56)
--- NOTE | 2021-11-08 14:47 | PM.DS ---
DS: Admitting Diagnosis Discharge Date 11/08/21 Admitting Diagnosis Hydroureteronephrosis kidney stones right-sided DS: Discharge Diagnosis Discharge Diagnosis (1) Right renal stone: Code(s): N20.0 - Calculus of kidney Status: Acute (2) Calculi, ureter: Code(s): N20.1 - Calculus of ureter Status: Acute (3) Asthma: Code(s): J45.909 - Unspecified asthma, uncomplicated Status: Acute DS: Summary Hospital Course Reason for hospitalization: Right-sided kidney stones hydroureter and pain Hospital Course: Mr. Plaza is a 45-year-old male past medical history of asthma and kidney stones who presents to ED with complaints of right back pain and abdominal pain. Patient underwent right ESWL by Dr. Baker on 11/06/2021 for right kidney stones. The procedure went well. He now returns with new pain. In the ED: CT abdomen pelvis was consistent with column of small stones in the right mid ureter L3 level with moderate right hydroureteronephrosis and perinephric edema. Vitals and lab work within normal limits. Urology was consulted and because of the small size of the kidneys stones they are okay with no stent placement, continue Flomax, ibuprofen pain control, keep outpatient follow-up. He was started on Flomax and started to pass kidney stones. If patient develops significant abdominal pain then ureter stent may be needed, however we are deferring for now. Patient to follow-up with Dr. Baker with his regular scheduled follow-up outpatient appointment. Rx for Flomax and ibuprofen given. At time of discharge patient's vitals are stable, labs stable, patient still for discharge home. He understands and agrees with plan. Status at Discharge Cognitive/behavioral status at discharge: At baseline Functional status at discharge: independent ambulation Overall status at discharge: patient is back to baseline Time Spent with Patient Time attestation: Total time spent providing and/or coordinating discharge services: 35 Time spent: Greater than 30 minutes Exam Narrative: - GENERAL: Pleasant male in no acute distress. Well nourished. - EYES: EOMI. Anicteric. - HENT: Moist mucous membranes. - LUNGS: Clear to auscultation bilaterally, no wheezing, rhonchi, or rales. - CARDIOVASCULAR: Regular rate and rhythm. No murmur. No JVD. - ABDOMEN: Soft, non-tender and non-distended. No palpable masses. Right CVA tenderness, mild - EXTREMITIES: No edema. Peripheral pulses 2+. Non-tender. - NEUROLOGIC: No focal neurological deficits. CN II-XII grossly intact. - PSYCHIATRIC: Awake, Alert and oriented x 3. Appropriate mood and affect. - SKIN: No rashes or lesions. Warm. - LYMPH: No cervical lymphadenopathy. DS: Data Data Completed and Pending Labs on day of discharge: Labs from last 24 hours 11/08/21 11/08/21 11/08/21 06:13 05:08 05:08 WBC 9.5 RBC 4.51 L Hgb 11.8 L Hct 37.8 L MCV 83.8 MCH 26.2 MCHC 31.2 L RDW 15.7 H Plt Count 227 MPV 9.7 Immature Gran % (Auto) 0.1 Neut % (Auto) 70.9 Lymph % (Auto) 16.1 L [place] % (Auto) 10.6 H Eos % (Auto) 2.0 Baso % (Auto) 0.3 Lymph # (Auto) 1.52 [place] # (Auto) 1.0 H Eos # (Auto) 0.2 Baso # (Auto) 0.0 Abs Immat Gran (auto) 0.01 Absolute Neuts (auto) 6.7 Absolute Nucleated RBC 0.0 Nucleated RBC % 0.0 Sodium 136 L Potassium 3.8 Chloride 104 Carbon Dioxide 25 Anion Gap 7 L BUN 8 L D Creatinine 1.20 Estim Creat Clear Calc 75 Estimated GFR > 60 Glucose 143 H Calcium 8.9 Total Bilirubin 0.8 AST 28 ALT 18 Alkaline Phosphatase 59 Total Protein 7.0 Albumin 4.2 Lipase 870 H Urine Color Urine Appearance Urine pH Ur Specific [place] Urine Protein Urine Glucose (UA) Urine Ketones Ur Blood (Man) Urine Nitrate Urine Bilirubin Urine Urobilinogen Leukocyte Esterase Rfl Urine RBC Urine WBC Urine Bacteria Urine
== END 2021-11-08 15:05 | disposition home or self-care (01) ==
LOC: ANHED 06:54 → ANH3MEDSUR 08:15
PROVIDERS: Admitting Provider Student in an Organized Health Care Education/Training Program; Emergency Provider Emergency Medicine; PCP Emergency Medicine; Visit Provider Student in an Organized Health Care Education/Training Program
DX: N13.2 Hydronephrosis with renal and ureteral calculous obstruction (principal); J45.909 Unspecified asthma, uncomplicated
CPT/HCPCS: 36415; 74177; 80053; 80307; 81001; 83690; 85025; 96374; 96375; 96376; 99285; A9270; G0378; G0379; J1170; J2405; J7030; Q9967

== ENCOUNTER 2021-11-09 17:38 | Inpatient (IN) | payer BC, SELFPAY ==
[2021-11-09] VITALS (7 sets, daily range): BP systolic 111–130; BP diastolic 57–98; PULSE 62–86; RESP 16–18; TEMP 36.9–37.6; O2SAT 96–100; BMI 25.9
--- NOTE | ~2021-11-09 | XR_ITS ---
EXAMINATION: XR retrograde pyelo w/stent RT DATE: 11/10/2021 13:49 INDICATION: Right internal ureteral stent placement TECHNIQUE: Fluoroscopic images from a right internal ureteral stent placement are submitted for ros am pinedo 125 seconds of fluoroscopy time. 5 fluoroscopic images. FINDINGS: There is a right double-J internal ureteral stent projecting in expected position, with proximal [place] loop at the level of the renal pelvis and distal loop in the pelvis within the bladder lumen. IMPRESSION: 1. Right internal ureteral stent placement. Please refer to real-time procedural findings for enzo snyder. Reviewed, dictated and finalized at location A. IMPRESSION: 1. Right internal ureteral stent placement. Please refer to real-time procedu ral findings for details.
--- NOTE | ~2021-11-09 | CT_ITS ---
EXAMINATION: CT abdomen pelvis wo con EXAM DATE: 11/09/2021 20:28 INDICATION: Flank pain, status post lithotripsy last Tuesday. TECHNIQUE: Spiral CT of the abdomen and pelvis was performed without contrast. Axial, coronal and sag ittal images were reviewed. The dose-length product (DLP) for this examination was 225.20 mGy-cm. T he exposure was tailored according to patient size (auto mA exposure control), and iterative reconstr uction (ASIR) was used as additional dose reduction technique. Comparison is made to prior examinatio n from 11/08/2021. FINDINGS: There is hyperdense material within the right renal pelvis and ureter consistent with acute blood. There is been interval migration of a stone to the distal aspect of the right ureter, measuri ng 8 mm. This is about 5 cm from the ureterovesicular junction. There is additional 4 mm stone in the proximal aspect of the right ureter. Several right inferior calyceal stones. Punctate left nephrolit hiasis. The prostate is unremarkable. The bladder is unremarkable. The liver, spleen, adrenal glands and pa ncreas are unremarkable. Gallbladder is unremarkable. No biliary obstruction. There is no retroper itoneal or pelvic lymphadenopathy. The appendix is normal. The stomach and small bowel are unremarkable. There is expected amount of c olonic stool. No free intraperitoneal gas. The heart is normal in size. There are no pericardial or pleural effusions. The lung bases are unremarkable. There are no osteoblastic or osteolytic les ions identified. L4 limbus vertebral body. IMPRESSION: 1. Right distal ureteral 8 mm stone, proximal ureteral 5 mm stone and hyperdense renal pelvis, urete r consistent with acute hemorrhage within. Mild to moderate hydroureteronephrosis. Consider stent ana maria cement. 2. Right nephrolithiasis, punctate left nephrolithiasis. Reviewed, dictated and finalized at location G. IMPRESSION: 1. Right distal ureteral 8 mm stone, proximal ureteral 5 mm stone and hyperden se renal pelvis, ureter consistent with acute hemorrhage within. Mild to modera te hydroureteronephrosis. Consider stent placement. 2. Right nephrolithiasis, punctate left nephrolithiasis.
--- NOTE | ~2021-11-09 | XR_ITS ---
EXAMINATION: XR abdomen/kub 1V EXAM DATE: 11/09/2021 21:28 INDICATION: Right flank pain. Kidney stone. TECHNIQUE: Frontal projection(s) of the abdomen for interpretation. Comparison is made to prior exami nation from 10/27/2021. FINDINGS: Difficult to identify the previously seen proximal ureteral stones on this exam, with inte rval increase in amount of colonic gas. Also, the larger mid ureteral stone probably overlies the sac rum. There is no organomegaly. There is mild thoracolumbar dextroscoliosis. IMPRESSION: Moderate amount of colonic gas. Right ureteral stones not identified. Reviewed, dictated and finalized at location G. IMPRESSION: Moderate amount of colonic gas. Right ureteral stones not identifi ed.
[2021-11-09 18:28] LABS: Basophils Percent Auto 0.2 % (0.2-1.2); Eosinophils Absolute Auto 0.1 K/mm3 (0-0.3); Hematocrit 35.4 % (42.0-52.0); Hemoglobin 11.4 g/dL (14.0-18.0); Immature Granulocyte Absolute 0.02 K/mm3 (0.00-0.031); Immature Granulocyte Percent A 0.2 % (0-0.5); Lymphocytes Absolute Auto 1.13 K/mm3 (0.9-3.2); Lymphocytes Percent Auto 11.6 % (18.3-44.2); Mean Corpuscular HGB Conc 32.2 g/dl (32-36); Mean Corpuscular Hemoglobin 26.6 pg (26-34); Mean Corpuscular Volume 82.5 fl (80-100); Mean Platelet Volume 9.2 fl (7.4-10.4); Monocytes Absolute Auto 0.9 K/mm3 (0.1-0.6); Monocytes Percent Auto 9.5 % (2.6-8.5); Neutrophils Absolute Auto 7.6 K/mm3 (1.3-6.7); Neutrophils Percent Auto 77.5 % (45.5-73.1); Platelet Count Result 217 k/mm3 (150-375); Red Blood Count 4.29 M/mm3 (4.6-6.20); Red Cell Distribution Width 15.8 % (11.5-14.5); White Blood Count 9.8 K/mm3 (4.5-10.0)
[2021-11-09 18:36] LABS: Add Urine Microscopic? YES; Appearance Urine Clear (Clear); Bacteria Urine Trace /hpf; Bilirubin Urine Negative (Negative); Blood Urine 3+ (Negative); Color Urine Straw (Yellow); Glucose Urine UA Negative (Negative); Ketones Urine Trace mg/dL (Negative); Leukocyte Esterase Ur Negative LEU/UL (Negative); Nitrate Urine Negative (Negative); Protein Urine Negative (Negative); Urobilinogen Urine Negative mg/dL (<2.0); WBC Urine 0-3 /hpf
[2021-11-09 18:38] LABS: Specific Grav Ur 1.002 (1.001-1.035)
[2021-11-09 18:42] LABS: Alanine Aminotransferase 19 U/L (4-50); Albumin Level 4.4 g/dL (3.5-5.1); Alkaline Phosphatase 69 U/L (38-126); Anion Gap 8 mmol/L (8-16); Aspartate Amino Transferase 35 U/L (17-59); Blood Urea Nitrogen 10 mg/dL (9-20); Calcium 8.9 mg/dL (8.4-10.2); Carbon Dioxide 24 mmol/L (22-30); Chloride 100 mmol/L (98-107); Estimated CRCL calculation 57 ml/min; Estimated Glomerular Filt Rate 47; Glucose 104 mg/dL (65-110); Lipase 236 U/L (23-300); Potassium 3.6 mmol/L (3.4-5.0); Sodium 132 mmol/L (137-145)
--- NOTE | 2021-11-09 19:25 | PC.NURSE ---
Assumed care of pt at this time. pt alert, supine on stretcher. Pt updated on POC.
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
[2021-11-09] MEDS: HYDROmorphone HCL INJ (*CRX) 1 MG/ML SYR 0.5 MG IV PUSH ×3 (19:39→23:30)
[2021-11-09] MEDS: SODIUM CHLORIDE 0.9% IV 1,000 ML 999 ML IV CONT (19:39)
[2021-11-09] MEDS: PROMETHAZINE HCL 25 MG/ML AMPUL 12.5 MG IV PUSH (19:40)
[2021-11-09] MEDS: LACTATED RINGERS 1,000 ML 125 ML IV CONT (23:23)
[2021-11-10] VITALS (11 sets, daily range): BP systolic 116–160; BP diastolic 66–110; PULSE 60–82; RESP 13–20; TEMP 36.9–37.2; O2SAT 96–99
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
--- NOTE | 2021-11-10 02:18 | ADMGEN ---
This patient, Stephen Plaza, was admitted to 3 Med Surg Room 320-01 at 2315. Patient/family oriented to hospital policies and general routines including ID bracelet, bed and alarms, visiting hours, pain management, procedures, bathroom and other care routines, personal items, smoking policy, room service/diet, and visiting hours. Information on how to activate the Rapid Response Team has been discussed. Patient/Family are encouraged to report perceived risks to care and to ask questions if they do not understand what they are told or what they should do.
[2021-11-10] MEDS: HYDROmorphone HCL INJ (*CRX) 1 MG/ML SYR IV PUSH (02:54)
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
--- NOTE | 2021-11-10 07:17 | WPDHPUPDATE1 ---
History and Physical Update Update Date/Time: 11/10/21 07:17 History and Physical has been reviewed, including an updated exam of the patient. There are NO changes in the patient's condition. Risks, benefits, and alternatives have been discussed and questions answered. Patient agrees to proceed with procedure.
[2021-11-10] MEDS: LACTATED RINGERS 1,000 ML 125 ML IV CONT (07:43)
[2021-11-10] MEDS: HYDROmorphone HCL INJ (*CRX) 1 MG/ML SYR 0.5 MG IV PUSH (07:47)
[2021-11-10] MEDS: TAMSULOSIN HCL 0.4 MG CAPSULE PO (08:31)
--- NOTE | 2021-11-10 09:45 | PM.DS ---
DS: Admitting Diagnosis Discharge Date 11/10/21 0945 Admitting Diagnosis Nephrolithiasis DS: Discharge Diagnosis Discharge Diagnosis (1) Acute unilateral obstructive uropathy: Code(s): N13.9 - Obstructive and reflux uropathy, unspecified Status: Acute Assessment and Plan: Admit to regular medical floor Urology consult Patient with a 5 mm and 8 mm stones present (2) Acute kidney injury: Code(s): N17.9 - Acute kidney failure, unspecified Status: Acute Assessment and Plan: IV fluids Likely secondary to obstructive uropathy (3) Hydronephrosis due to obstruction of ureter: Code(s): N13.1 - Hydronephrosis with ureteral stricture, not elsewhere classified Status: Acute Assessment and Plan: Secondary to obstructive uropathy (4) Asthma: Code(s): J45.909 - Unspecified asthma, uncomplicated Status: Acute Assessment and Plan: Not actively wheezing Continue home med Continue to monitor DS: Summary Hospital Course Hospital Course: Patient is a 45-year-old male with a past medical history of asthma and BPH who presented to the ED with complaints of right flank pain with nausea vomiting. Patient was having severe pain and decided to come in to get checked out in the emergency room. Urology was consulted patient was taken to the OR for a renal stent and cystoscopy. Patient did state that he was having some issues with frequency and urgency which should be resolved after the stones are removed. Patient was started on IV fluids. He was also noted the patient had an acute kidney injury with an elevated creatinine. Patient seems to be doing well. Urology has stated the patient is able to go home patient denies any chest pain, shortness of breath, nausea, vomiting, diarrhea, constipation, weakness or fatigue. Status at Discharge Functional status at discharge: independent ambulation Overall status at discharge: patient is progressing back to baseline Time Spent with Patient Time attestation: Total time spent providing and/or coordinating discharge services: 38 minutes Time spent: Greater than 30 minutes Specific discharge activities: Diagnostic testing, chart review, developing a treatment plan, education, care coordination documentation, physical exam, result review Exam Const: General: cooperative, no acute distress, well developed, alert, awake and anxious Nutritional Appearance: average body habitus Orientation/consciousness: oriented to person, oriented to place, oriented to time and patient oriented x3 HENMT: Head: normal to inspection, normocephalic and atraumatic Ears: hearing grossly normal bilaterally General nose exam: Normal external nose present Face and sinus: normal facial exam Mouth: Yes Normal oral and palatal mucosa present Eyes: General: appearance normal, both eyes and all related structures Alignment and Position: alignment normal Sclera: sclerae normal Pupils: Equal, round and reactive pupils present EOM: EOMs intact bilaterally Neck: Neck: normal visual inspection, full ROM, no lymphadenopathy, supple and no JVD Thyroid: thyroid normal Lymphatic: no lymphadenopathy noted Resp: Effort & Inspection: normal respiratory effort and able to speak in complete sentences Auscultation: clear to auscultation bilaterally, no crackles, no rales, no rhonchi and no wheezes Cardio: Jugular venous distension: no JVD Rate: regular rate Rhythm: regular rhythm Heart sounds: S1 normal heart sound present and S2 normal heart sound present GI: Inspection: normal to inspection : General: Yes CVA tenderness on the right Back/Spine/Pelvis: Back: CVA tenderness Skin: General skin exam: normal color Rashes: no rashes Wounds: no wounds Neuro: General: patient oriented x3 and CN's II-XI intact bilaterally Cranial nerves: Yes CN's II-XII intact bilaterally and Yes Equal, round and reactive pupils present Cognition (Neuro): normal cognition Speech: no
[2021-11-10] MEDS: LACTATED RINGERS 1,000 ML 30 ML IV CONT ×2 (12:00→13:55)
--- NOTE | 2021-11-10 12:10 | WPDANESEPPF ---
Anes - Initial Pre Proc Eval Procedure: Operation Date: 11/10/21 15:45 Proposed Procedures p Cystoscopy, Right Stent Placement, Possible Ureteroscopy, Possible Stone Extraction - Saad Baker MD Date/Time: 11/10/21 12:10 Surgeon: Godfrey Gonzalez MD Pre Op Diagnosis: Accute kidney injury, acute obstructive uropathy Patient Data Age: 45 Gender: M Height: 1.83 m Weight: 86.6 kg Last Vital Signs Temp 37.2 C 11/10/21 05:48 Pulse 60 11/10/21 05:48 Resp 16 11/10/21 05:48 BP 120/66 11/10/21 05:48 Pulse Ox 96 11/10/21 05:48 Allergies Allergy/AdvReac Type Severity Reaction Status Date / Time No Known Allergies Allergy Verified 11/10/21 02:20 Home Medications Medication Instructions Recorded Confirmed Type fluticasone propion-salmeterol 2 inh INHALATION BID 11/05/21 11/10/21 History [Wixela Inhub] oxycodone-acetaminophen 1 tablet PO Q4H PRN #10 tablet 11/05/21 11/10/21 Rx cephalexin 500 mg PO Q8H #9 cap 11/06/21 11/10/21 Rx albuterol sulfate 2 puff INHALATION BID PRN 11/08/21 11/10/21 History tamsulosin 0.4 mg PO QAM 30 Days #30 cap 11/08/21 11/10/21 Rx ibuprofen 400 mg PO Q6H PRN 11/10/21 11/10/21 History Laboratory Tests 11/09/21 11/09/21 11/09/21 18:15 18:15 18:15 WBC 9.8 K/mm3 K/mm3 (4.5-10.0) RBC 4.29 M/mm3 L M/mm3 (4.6-6.20) Hgb 11.4 g/dL L g/dL (14.0-18.0) Hct 35.4 % L % (42.0-52.0) MCV 82.5 fl fl (80-100) MCH 26.6 pg pg (26-34) MCHC 32.2 g/dl g/dl (32-36) RDW 15.8 % H % (11.5-14.5) Plt Count 217 k/mm3 k/mm3 (150-375) MPV 9.2 fl fl (7.4-10.4) Immature Gran % (Auto) 0.2 % % (0-0.5) Neut % (Auto) 77.5 % H % (45.5-73.1) Lymph % (Auto) 11.6 % L % (18.3-44.2) Deuel % (Auto) 9.5 % H % (2.6-8.5) Eos % (Auto) 1.0 % % (0-4.4) Baso % (Auto) 0.2 % % (0.2-1.2) Lymph # (Auto) 1.13 K/mm3 K/mm3 (0.9-3.2) Deuel # (Auto) 0.9 K/mm3 H K/mm3 (0.1-0.6) Eos # (Auto) 0.1 K/mm3 K/mm3 (0-0.3) Baso # (Auto) 0.0 K/mm3 K/mm3 (0.0-0.1) Abs Immat Gran (auto) 0.02 K/mm3 K/mm3 (0.00-0.031) Absolute Neuts (auto) 7.6 K/mm3 H K/mm3 (1.3-6.7) Absolute Nucleated RBC 0.0 K/mm3 K/mm3 (0.0-0.012) Nucleated RBC % 0.0 % % (0.0-0.2) Sodium 132 mmol/L L mmol/L (137-145) Potassium 3.6 mmol/L mmol/L (3.4-5.0) Chloride 100 mmol/L mmol/L (98-107) Carbon Dioxide 24 mmol/L mmol/L (22-30) Anion Gap 8 mmol/L mmol/L (8-16) BUN 10 mg/dL mg/dL (9-20) Creatinine 1.60 mg/dL H mg/dL (0.7-1.3) Estim Creat Clear Calc 57 ml/min ml/min Estimated GFR 47 L (59 - ) Glucose 104 mg/dL mg/dL (65-110) Calcium 8.9 mg/dL mg/dL (8.4-10.2) Total Bilirubin 1.0 mg/dL mg/dL (0.2-1.3) AST 35 U/L U/L (17-59) ALT 19 U/L U/L (4-50) Alkaline Phosphatase 69 U/L U/L (38-126) Total Protein 7.0 g/dL g/dL (6.3-8.2) Albumin 4.4 g/dL g/dL (3.5-5.1) Lipase 236 U/L U/L (23-300) Urine Color Straw (Yellow) Urine Appearance Clear (Clear) Urine pH 6.0 (5.0-9.0) Ur Specific Lyman 1.002 (1.001-1.035) Urine Protein Negative mg/dL mg/dL (Negative) Urine Glucose (UA) Negative mg/dL mg/dL (Negative) Urine Ketones Trace mg/dL mg/dL (Negative) Ur Blood (Man) 3+ H (Negative) Urine Nitrate Negative (Negative) Urine Bilirubin Negative (Negative) Urine Urobilinogen Negative mg/dL mg/dL (<2.0) Leukocyte Esterase Rfl Negative PADMINI/UL PADMINI/UL (Negative) Urine RBC 3-5 /hpf H /hpf (0-2) Urine WBC 0-3 /hpf /hpf Urine
[2021-11-10] MEDS: fentaNYL CITRATE INJ (*CRX) 100 MCG/2 ML VIAL 25 MCG IV PUSH ×4 (12:12→14:06)
[2021-11-10] MEDS: LIDOCAINE HCL 2% GEL UROJET 10 ML PKG MUCOUS MEM (13:27)
--- NOTE | 2021-11-10 13:52 | W.PM.PROC2 ---
Procedure Note - Detailed Date of Procedure 11/10/21 Pre-op Diagnosis Right ureteral stones Post-op Diagnosis Same Procedure Performed Cystoscopy, right retrograde pyelography, right ureteroscopy with stone extraction and right ureteral stent placement Surgeon Saad Baker MD Anesthesia General Description of Procedure patient brought to the operative suite re-prepped draped in routine sterile fashion while in dorsal lithotomy position. 2% xylocaine jelly was introduced intraurethrally madison stent for an appropriate period of time. Systemic sedation is administered per the anesthesia department. Cystoscopy is undertaken the 19 F rigid cystoscope. He has minimal lateral lobe hyperplasia of the prostate. There was no intravesical foreign body or neoplasm. 0.035 in glidewire was advanced in the right renal pelvis under fluoroscopy. Distal ureter was dilated with an 8 F 10 F dilator ureteroscopy was undertaken with the semi-rigid ureteral scope. There are multiple tiny little stone fragments, most of which were removed with a disposable stone basket. There were minimal fragments left at the termination of procedure nothing on retrograde pyelography in the more proximal that I could identify. I did place a right ureteral stent with proximal coil in renal pelvis and distal coil in the bladder. Scopes and wires removed and he was taken recovery room good condition Urine Output 1,100 Drains Yes Packing No Pathology Yes Complications No immediate complications Condition Stable Disposition PACU
[2021-11-10] MEDS: KETOROLAC 15 MG/ML VIAL (*BKC) IV PUSH ×2 (14:20→14:32)
[2021-11-10] MEDS: HYDROmorphone HCL INJ (*CRX) 1 MG/ML SYR 0.25 MG IV PUSH ×2 (14:25→14:50)
[2021-11-10] MEDS: HYOSCYAMINE SULFATE 0.125 MG TABLET PO (14:40)
--- NOTE | 2021-11-11 07:46 | WPDANESPN ---
Anes - Prog Note Post-Op Date/Time: 11/11/21 07:46 Cardiovascular status: normal Respiratory status: normal Airway patency: baseline Mental status: baseline Post-Op hydration status: normal Vital Signs: Last Vital Signs Temp 98.9 F 11/10/21 13:50 Pulse 69 11/10/21 15:50 Resp 18 11/10/21 15:50 BP 128/79 11/10/21 15:50 Pulse Ox 99 11/10/21 15:50 Pain Score (VAS): 08/31 I/O: Intake & Output 11/10/21 11/10/21 11/11/21 15:59 23:59 07:59 Intake Total 1000 Output Total 1200 Balance -200 Laboratory Tests 11/09/21 18:15 11/09/21 18:15 Post-procedural complaints: none Patient Feedback: Patient satisfied with anesthetic care.
== END 2021-11-10 17:30 | disposition home or self-care (01) | DRG 446 ==
LOC: ANHED 21:21 → ANH3MEDSUR 22:06
PROVIDERS: Emergency Medicine; Urology; Admitting Provider Internal Medicine; Emergency Provider Emergency Medicine; PCP Emergency Medicine; Visit Provider Nurse Practitioner
PROC: 0TC68ZZ Extirpation of Matter from Right Ureter, Via Natural or Artificial Opening Endoscopic (ICD-10-PCS; CPT 52352; principal; 2021-11-10 15:45)
DX: N13.2 Hydronephrosis with renal and ureteral calculous obstruction (principal); N17.9 Acute kidney failure, unspecified; N40.0 Benign prostatic hyperplasia without lower urinary tract symptoms; J45.909 Unspecified asthma, uncomplicated; Z87.442 Personal history of urinary calculi
CPT/HCPCS: 36415; 74018; 74176; 74420; 80053; 81001; 82365; 83690; 85025; 88300; 96361; 96374; 96375; 96376; 99285; A9270; C1769; C1894; C2617; G0378; J1170; J1885; J2250; J2550; J2704; J3010; J7030; J7120; Q9966